=== PATIENT | female | born 2000 | race Hispanic/Latino ===

== ENCOUNTER 2020-01-23 16:33 | Outpatient (CLI) | payer MEDICAID ==
[2020-01-23 18:24] LABS: Bilirubin,Urine NEG (Negative); Blood,Urine NEG (Negative); Color,Urine Yellow (Yellow); Mucus,Urine 1+ /HPF; Protein,Urine <15 mg/dL mg/dL (Negative); RBC,Urine < 1.0 /HPF (0.0-6.0); Urobilinogen,Urine < 2.0 mg/dL (<2.0)
[2020-01-23 18:45] LABS: Hematocrit 33.9 % (30.3-42.9); Hemoglobin 11.2 gm/dl (10.1-14.3); Mean Corpuscular HGB Conc 33 % (30-34); Mean Corpuscular Volume 86 fl (79-97); Platelet Count 138 K/mm3 (140-440); Red Blood Count 3.97 M/mm3 (3.65-5.03); Red Cell Distribution Width 17.2 % (13.2-15.2)
[2020-01-23 19:08] LABS: Alanine Aminotransferase 9 units/L (7-56); Uric Acid 3.6 mg/dL (3.5-7.6)
[2020-01-24 13:33] VITALS: BP 141/72
== END 2020-01-23 19:24 | disposition home or self-care (01) ==
LOC: TRG 16:33 → APU 16:34 → TRG 19:24
PROVIDERS: ATTEND Obstetrics & Gynecology
DX: O13.3 Gestational [pregnancy-induced] hypertension without significant proteinuria, third trimester (principal); Z3A.39 39 weeks gestation of pregnancy
CPT/HCPCS: 36415; 81001; 82565; 83615; 84450; 84460; 84550; 85027

== ENCOUNTER 2020-02-08 20:27 | Inpatient (IN) | payer MEDICAID ==
[2020-02-08] MEDS ORDERED: MINERAL OIL 30 ML ORAL LIQD PO PRN (21:39)
[2020-02-08] MEDS ORDERED: TERBUTALINE 1 MG/1 ML INJ IVP PRN (21:39)
[2020-02-08] MEDS ORDERED: LIDOCAINE (2%) 20 MG/1 ML VIAL 20 ML MDV INFILTRATI ONE (21:39)
[2020-02-08] MEDS ORDERED: TERBUTALINE 1 MG/1 ML INJ SUB-Q PRN (21:39)
[2020-02-08] MEDS ORDERED: AMPICILLIN/NS 2 GM/100 ML 2 GM/100 ML BAG IV ONE (21:39)
[2020-02-08] MEDS ORDERED: ONDANSETRON 4 MG/2 ML INJ IV PRN (21:39)
[2020-02-08] MEDS ORDERED: ePHEDrine SULFATE 50 MG/1 ML INJ IV PRN (21:39)
[2020-02-08] MEDS ORDERED: BUTORPHANOL 2 MG/1 ML INJ IV PRN (21:39)
--- NOTE | 2020-02-08 21:47 | History and Physical Report ---
History of Present Illness Date of examination: 02/08/20 Date of admission: 02/08/20 20:27 Chief complaint: Presents for a scheduled postdates induction History of present illness: Late entry to care, course complicated by Anemia and a Abnormal 1hour GTT followed by a normal 3hour GTT. Past History Past Medical History: no pertinent history Past Surgical History: no surgical history Family/Genetic History: diabetes (Father), hypertension (Father) Social history: no significant social history, single - Obstetrical History Expected Date of Delivery: 01/30/20 Actual Gestation: 41 Week(s) 2 Day(s) : 1 Medications and Allergies Allergies Allergy/AdvReac Type Severity Reaction Status Date / Time pollen extracts Allergy Itching Verified 01/23/20 17:07 Review of Systems All systems: negative - Physical Exam Breasts: Positive: normal Cardiovascular: Regular rate Lungs: Positive: Clear to auscultation, Normal air movement Abdomen: Positive: normal appearance, soft, normal bowel sounds Genitourinary (Female): Positive: normal external genitalia, normal perenium Vagina: Positive: normal moisture Uterus: Positive: enlarged Anus/Rectum: Positive: normal perianal skin Extremities: Positive: normal - Obstetrical FHR: category 1 Uterine Contraction Monitor Mode: External Cervical Dilatation: 3 (VTX; Intact) Cervical Effacement Percentage: 70 station: -2 Uterine Contraction Pattern: Absent Results All other labs normal. Assessment and Plan A: IUP @ 41 2/7 Weeks Category I Tracing GBS Positive P: Admit to L&D per Routine Orders Pitocin Induction GBS Prophylaxis
[2020-02-08] MEDS ORDERED: OXYTOCIN 20 UNIT/1000ML DRIP 20 UNITS/1,000 ML BAG IV SCH (22:00)
[2020-02-08] MEDS ORDERED: OXYTOCIN DRIP 30 UNITS/500 ML BAG IV SCH (22:00)
[2020-02-08] MEDS: LACTATED RINGERS 1,000 ML IV SCH (22:24)
[2020-02-09 00:57] LABS: Hematocrit 32.7 % (30.3-42.9); Hemoglobin 10.9 gm/dl (10.1-14.3); Mean Corpuscular HGB Conc 33 % (30-34); Mean Corpuscular Volume 88 fl (79-97); Platelet Count 141 K/mm3 (140-440); Red Blood Count 3.74 M/mm3 (3.65-5.03)
[2020-02-09] MEDS: LACTATED RINGERS 1,000 ML IV SCH ×2 (03:53→06:13)
[2020-02-09] MEDS: AMPICILLIN/NS 1 GM/50 ML 1 GM/50 ML BAG IV SCH ×3 (03:54→12:41)
[2020-02-09] MEDS ORDERED: fentaNYL-BUPIV 2 MCG/ML-0.125% 200 MCG/100 ML BAG EPIDURAL ONE (06:07)
[2020-02-09] MEDS ORDERED: DEXMEDETOMIDINE 200 MCG/2 ML VIAL IV ONE (06:07)
[2020-02-09] MEDS ORDERED: NALOXONE 2 MG/2 ML INJ IV PRN (06:23)
[2020-02-09] MEDS ORDERED: ePHEDrine SULFATE 50 MG/1 ML INJ IV PRN (06:23)
--- NOTE | 2020-02-09 06:23 | Anesthesia Consultation ---
Anesthesia Consult and Med Hx Date of service: 02/09/20 - Airway Anesthetic Teeth Evaluation: Good ROM Head & Neck: Adequate Mental/Hyoid Distance: Adequate Mallampati Class: Class II Intubation Access Assessment: Probably Good - Pulmonary Exam CTA: Yes - Cardiac Exam Cardiac Exam: RRR - Pre-Operative Health Status ASA Pre-Surgery Classification: ASA2 Proposed Anesthetic Plan: Epidural - Pulmonary Hx Asthma: No COPD: No Hx Pneumonia: No - Cardiovascular System Hx Hypertension: No - Central Nervous System Hx Seizures: No Hx Psychiatric Problems: No - Endocrine Hx Renal Disease: No Hx End Stage Renal Disease: No Hx Hypothyroidism: No Hx Hyperthyroidism: No - Hematic Hx Anemia: No Hx Sickle Cell Disease: No - Other Systems Hx Alcohol Use: No
--- NOTE | 2020-02-09 06:25 | Progress Note ---
Labor Epidural - Labor Epidural Start Time: 06:12 Stop Time: 06:16 Performed by:: CHARLOTTE DIAZ Procedure: Patient is requesting epidural for labor pain. H&P, and labs reviewed. Procedure explained, questions answered, consent obtained. Patient in sitting position with blood pressure cuff and pulse ox on and working. Timeout performed immediately before start of procedure. Sterile betadine prep/drape. 3 mL 1% lidocaine skin wheal at L[3]-L[4]. 18-gauge Touhy epidural needle advanced to [id number] with saline at [7] cm. 27-gauge spinal needle advanced until clear, free-flowing CSF. Intrathecal dexmedetomidine [10] mcg administered and needle removed. Epidural catheter advanced to [12] cm, negative aspiration for blood and csf, negative test dose 3 ml 1.5% lidocaine with epinephrine. Sterile steri-strips and tegaderm applied, followed by tape reinforcement. Patient tolerated procedure well.
[2020-02-09] MEDS ORDERED: fentaNYL-BUPIV 2 MCG/ML-0.125% 200 MCG/100 ML BAG EPIDURAL SCH (07:00)
[2020-02-09] MEDS ORDERED: SODIUM CHLORIDE 0.9% 1000 ML 1,000 ML ONE (08:11)
[2020-02-09] MEDS ORDERED: SODIUM CHLORIDE 0.9% 1000 ML 1,000 ML VG SCH (08:15)
--- NOTE | 2020-02-09 08:15 | Progress Note ---
Assessment and Plan A: IUP @ 41 2/7 Weeks Category II Tracing Active Labor GBS Positive P: AROM Internals x 2 Continue GBS Prophylaxis Amnioinfusion Consulted Dr. Padilla about Category II Tracing Recommends Resting off Pitocin x 1 hour Fluid Bolus Subjective - Subjective Date of service: 02/09/20 Interval history: Late entry to care, course complicated by Anemia and a Abnormal 1hour GTT followed by a normal 3hour GTT. Patient reports: movement normal, other (Resting well under epidural anesthesia) Objective - Vital Signs Vital Signs: Vital Signs - 12hr 02/08/20 02/08/20 02/08/20 21:48 21:53 21:58 Temperature Pulse Rate 85 88 94 H Respiratory Rate Blood Pressure 127/72 Blood Pressure [Left] O2 Sat by Pulse 98 100 Oximetry 02/08/20 02/08/20 02/08/20 22:03 22:08 22:10 Temperature Pulse Rate 86 94 H 94 H Respiratory Rate Blood Pressure 121/59 Blood Pressure [Left] O2 Sat by Pulse 100 100 Oximetry 02/08/20 02/08/20 02/08/20 22:13 22:18 22:23 Temperature Pulse Rate 92 H 89 90 Respiratory Rate Blood Pressure Blood Pressure [Left] O2 Sat by Pulse 100 100 100 Oximetry 02/09/20 02/09/20 02/09/20 00:02 00:03 00:04 Temperature Pulse Rate 80 82 81 Respiratory 18 Rate Blood Pressure 129/62 Blood Pressure 129/62 [Left] O2 Sat by Pulse 98 98 Oximetry 02/09/20 02/09/20 02/09/20 00:06 04:00 04:06 Temperature 97.8 F Pulse Rate 25 L 66 70 Respiratory 18 Rate Blood Pressure Blood Pressure [Left] O2 Sat by Pulse 88 99 99 Oximetry 02/09/20 02/09/20 02/09/20 04:11 04:15 04:16 Temperature Pulse Rate 72 73 73 Respiratory Rate Blood Pressure 131/83 Blood Pressure [Left] O2 Sat by Pulse 99 99 Oximetry 02/09/20 02/09/20 02/09/20 04:21 04:26 04:30 Temperature Pulse Rate 79 81 68 Respiratory Rate Blood Pressure 125/78 Blood Pressure [Left] O2 Sat by Pulse 99 99 Oximetry 02/09/20 02/09/20 02/09/20 04:31 04:36 04:41 Temperature Pulse Rate 69 73 83 Respiratory Rate Blood Pressure Blood Pressure [Left] O2 Sat by Pulse 99 98 99 Oximetry 02/09/20 02/09/20 02/09/20 04:45 04:46 04:51 Temperature Pulse Rate 75 96 H 134 H Respiratory Rate Blood Pressure 137/80 Blood Pressure [Left] O2 Sat by Pulse 85 89 Oximetry 02/09/20 02/09/20 02/09/20 04:52 04:56 05:00 Temperature Pulse Rate 92 H 78 Respiratory Rate Blood Pressure 130/79 Blood Pressure [Left] O2 Sat by Pulse 92 99 Oximetry 02/09/20 02/09/20 02/09/20 05:01 05:06 05:11 Temperature Pulse Rate 69 73 77 Respiratory Rate Blood Pressure Blood Pressure [Left] O2 Sat by Pulse 100 99 98 Oximetry 02/09/20 02/09/20 02/09/20 05:15 05:16 05:21 Temperature Pulse Rate 77 77 89 Respiratory Rate Blood Pressure 137/83 Blood Pressure [Left] O2 Sat by Pulse 98 99 Oximetry 02/09/20 02/09/20 02/09/20 05:26 05:30 05:31 Temperature Pulse Rate 81 70 71 Respiratory Rate Blood Pressure 129/79 Blood Pressure [Left] O2 Sat by Pulse 99 100 Oximetry 02/09/20 02/09/20 02/09/20 05:36 05:41 05:46 Temperature Pulse Rate 80 77 85 Respiratory Rate Blood Pressure 148/85 Blood Pressure [Left] O2 Sat by Pulse 98 99 100 Oximetry 02/09/20 02/09/20 02/09/20 05:51 05:56 06:01 Temperature Pulse Rate 101 H 97 H 112 H Respiratory Rate Blood Pressure 132/90 Blood Pressure [Left] O2 Sat by Pulse 100 100 99 Oximetry 02/09/20 02/09/20 02/09/20 06:04 06:06 06:11 Temperature Pulse Rate 107 H 77 98 H Respiratory Rate Blood Pressure Blood Pressure [Left] O2 Sat by Pulse 89 100 100 Oximetry 02/09/20 02/09/20 02/09/20 06:14 06:16 06:18 Temperature Pulse Rate 100 H 102 H 93 H Respiratory Rate Blood Pressure 158/89 130/73 125/62 Blood Pressure [Left] O2 Sat by Pulse 100 Oximetry 02/09/20 02/09/20 02/09/20 06:20 06:21 06:22 Temperature Pulse Rate 88 100 H 86 Respiratory Rate Blood Pressure 123/58 111/56 Blood Pressure [Left] O2 Sat by Pulse 100 Oximetry 02/09/20 02/09/20 02/09/20 06:24 06:26 06:28 Temperature Pulse Rate 82 80 75 Respiratory Rate Blood Pressure 109/58 106/58 102/59 Blood Pressure [Left] O2 Sat by Pulse 99 Oximetry 02/09/20 02/09/20 02/09/20 06:30 06:31 06:32 Temperature Pulse Rate 75 69 67 Respiratory Rate Blood Pressure 113/63 108/57 Blood Pressure [Left] O2 Sat by Pulse 99 Oximetry 02/09/20 02/09/20 02/09/20 06:34 06:36 06:38 Temperature Pulse Rate 63 70 59 L Respiratory Rate Blood Pressure 105/59 101/55 126/72 Blood Pressure [Left] O2 Sat by Pulse 99 Oximetry 02/09/20 02/09/20 02/09/20 06:40 06:41 06:42 Temperature Pulse Rate 62 64 67 Respiratory Rate Blood Pressure 122/70 131/75 Blood Pressure [Left] O2 Sat by Pulse 99 Oximetry 02/09/20 02/09/20 02/09/20 06:44 06:46 06:48 Temperature Pulse Rate 66 69 78 Respiratory Rate Blood Pressure 125/68 130/70 120/67 Blood Pressure [Left] O2 Sat by Pulse 99 Oximetry 02/09/20 02/09/20 02/09/20 06:50 06:51 06:56 Temperature Pulse Rate 69 74 68 Respiratory Rate Blood Pressure 117/64 Blood Pressure [Left] O2 Sat by Pulse 98 98 Oximetry 02/09/20 02/09/20 02/09/20 07:01 07:05 07:06 Temperature Pulse Rate 70 76 76 Respiratory Rate Blood Pressure 110/57 Blood Pressure [Left] O2 Sat by Pulse 98 98 Oximetry 02/09/20 02/09/20 02/09/20 07:11 07:16 07:20 Temperature Pulse Rate 76 69 86 Respiratory Rate Blood Pressure 110/61 Blood Pressure [Left] O2 Sat by Pulse 98 98 Oximetry 02/09/20 02/09/20 02/09/20 07:21 07:26 07:31 Temperature Pulse Rate 79 65 80 Respiratory Rate Blood Pressure Blood Pressure [Left] O2 Sat by Pulse 98 97 96 Oximetry 02/09/20 02/09/20 02/09/20 07:35 07:36 07:41 Temperature Pulse Rate 70 87 97 H Respiratory Rate Blood Pressure 105/65 Blood Pressure [Left] O2 Sat by Pulse 98 99 Oximetry 02/09/20 02/09/20 02/09/20 07:46 07:50 07:51 Temperature Pulse Rate 114 H 76 82 Respiratory Rate Blood Pressure 143/60 Blood Pressure [Left] O2 Sat by Pulse 100 100 Oximetry 02/09/20 02/09/20 02/09/20 07:56 08:01 08:05 Temperature Pulse Rate 80 73 82 Respiratory Rate Blood Pressure 112/70 Blood Pressure [Left] O2 Sat by Pulse 100 99 Oximetry 02/09/20 08:06 Temperature Pulse Rate 78 Respiratory Rate Blood Pressure Blood Pressure [Left] O2 Sat by Pulse 100 Oximetry - Exam Breasts: normal Cardiovascular: Regular rate Lungs: Normal air movement Abdomen: Present: normal appearance, soft Uterus: Present: normal, firm, fundal height above umbilicus FHR: category 2 FHR comments: FHR: 130s, marked varability, -accels, +multiple varabile decels, +isolated late decels Cervical Dilatation: 5 (Copious amount of clear fluid upon AROM @0740) Cervical Effacement Percentage: 85 station: -2 Uterine Contraction Pattern: Irregular Uterine Tone Measurement Phase: Resting Uterine Contraction Intensity: Moderate Extremities: normal - Labs Labs: Abnormal Labs 02/09/20 00:15 RDW 18.0 H Laboratory Results - last 24 hr 02/09/20 02/09/20 00:15 00:15 WBC 7.6 RBC 3.74 Hgb 10.9 Hct 32.7 MCV 88 MCH 29 MCHC 33 RDW 18.0 H Plt Count 141 Blood Type A POSITIVE Antibody Screen Negative
--- NOTE | 2020-02-09 09:20 | Progress Note ---
Subjective - Subjective Date of service: 02/09/20 Principal diagnosis: IOL,postdates Interval history: patient aaox3,comfortable at bedside epidural adequate oxytocin at 2mu/min cervix 5cm/100%/-2 [place]:Q2-3 minutes FHT 130 baseline,moderate variability, +ve accelerations ( variables resolved) continue amnioinfusion maternal/ well being reassuring overall Ketan Padilla MD Patient reports: movement normal, other (Resting well under epidural anesthesia) Objective - Vital Signs Vital Signs: Vital Signs - 12hr 02/08/20 02/08/20 02/08/20 21:48 21:53 21:58 Temperature Pulse Rate 85 88 94 H Respiratory Rate Blood Pressure 127/72 Blood Pressure [Left] O2 Sat by Pulse 98 100 Oximetry 02/08/20 02/08/20 02/08/20 22:03 22:08 22:10 Temperature Pulse Rate 86 94 H 94 H Respiratory Rate Blood Pressure 121/59 Blood Pressure [Left] O2 Sat by Pulse 100 100 Oximetry 02/08/20 02/08/20 02/08/20 22:13 22:18 22:23 Temperature Pulse Rate 92 H 89 90 Respiratory Rate Blood Pressure Blood Pressure [Left] O2 Sat by Pulse 100 100 100 Oximetry 02/09/20 02/09/20 02/09/20 00:02 00:03 00:04 Temperature Pulse Rate 80 82 81 Respiratory 18 Rate Blood Pressure 129/62 Blood Pressure 129/62 [Left] O2 Sat by Pulse 98 98 Oximetry 02/09/20 02/09/20 02/09/20 00:06 04:00 04:06 Temperature 97.8 F Pulse Rate 25 L 66 70 Respiratory 18 Rate Blood Pressure Blood Pressure [Left] O2 Sat by Pulse 88 99 99 Oximetry 02/09/20 02/09/20 02/09/20 04:11 04:15 04:16 Temperature Pulse Rate 72 73 73 Respiratory Rate Blood Pressure 131/83 Blood Pressure [Left] O2 Sat by Pulse 99 99 Oximetry 02/09/20 02/09/20 02/09/20 04:21 04:26 04:30 Temperature Pulse Rate 79 81 68 Respiratory Rate Blood Pressure 125/78 Blood Pressure [Left] O2 Sat by Pulse 99 99 Oximetry 02/09/20 02/09/20 02/09/20 04:31 04:36 04:41 Temperature Pulse Rate 69 73 83 Respiratory Rate Blood Pressure Blood Pressure [Left] O2 Sat by Pulse 99 98 99 Oximetry 02/09/20 02/09/20 02/09/20 04:45 04:46 04:51 Temperature Pulse Rate 75 96 H 134 H Respiratory Rate Blood Pressure 137/80 Blood Pressure [Left] O2 Sat by Pulse 85 89 Oximetry 02/09/20 02/09/20 02/09/20 04:52 04:56 05:00 Temperature Pulse Rate 92 H 78 Respiratory Rate Blood Pressure 130/79 Blood Pressure [Left] O2 Sat by Pulse 92 99 Oximetry 02/09/20 02/09/20 02/09/20 05:01 05:06 05:11 Temperature Pulse Rate 69 73 77 Respiratory Rate Blood Pressure Blood Pressure [Left] O2 Sat by Pulse 100 99 98 Oximetry 02/09/20 02/09/20 02/09/20 05:15 05:16 05:21 Temperature Pulse Rate 77 77 89 Respiratory Rate Blood Pressure 137/83 Blood Pressure [Left] O2 Sat by Pulse 98 99 Oximetry 02/09/20 02/09/20 02/09/20 05:26 05:30 05:31 Temperature Pulse Rate 81 70 71 Respiratory Rate Blood Pressure 129/79 Blood Pressure [Left] O2 Sat by Pulse 99 100 Oximetry 02/09/20 02/09/20 02/09/20 05:36 05:41 05:46 Temperature Pulse Rate 80 77 85 Respiratory Rate Blood Pressure 148/85 Blood Pressure [Left] O2 Sat by Pulse 98 99 100 Oximetry 02/09/20 02/09/20 02/09/20 05:51 05:56 06:01 Temperature Pulse Rate 101 H 97 H 112 H Respiratory Rate Blood Pressure 132/90 Blood Pressure [Left] O2 Sat by Pulse 100 100 99 Oximetry 02/09/20 02/09/20 02/09/20 06:04 06:06 06:11 Temperature Pulse Rate 107 H 77 98 H Respiratory Rate Blood Pressure Blood Pressure [Left] O2 Sat by Pulse 89 100 100 Oximetry 02/09/20 02/09/20 02/09/20 06:14 06:16 06:18 Temperature Pulse Rate 100 H 102 H 93 H Respiratory Rate Blood Pressure 158/89 130/73 125/62 Blood Pressure [Left] O2 Sat by Pulse 100 Oximetry 05/28/20 05/28/20 05/28/20 06:20 06:21 06:22 Temperature Pulse Rate 88 100 H 86 Respiratory Rate Blood Pressure 123/58 111/56 Blood Pressure [Left] O2 Sat by Pulse 100 Oximetry 02/09/20 02/09/20 02/09/20 06:24 06:26 06:28 Temperature Pulse Rate 82 80 75 Respiratory Rate Blood Pressure 109/58 106/58 102/59 Blood Pressure [Left] O2 Sat by Pulse 99 Oximetry 02/09/20 02/09/20 02/09/20 06:30 06:31 06:32 Temperature Pulse Rate 75 69 67 Respiratory Rate Blood Pressure 113/63 108/57 Blood Pressure [Left] O2 Sat by Pulse 99 Oximetry 02/09/20 02/09/20 02/09/20 06:34 06:36 06:38 Temperature Pulse Rate 63 70 59 L Respiratory Rate Blood Pressure 105/59 101/55 126/72 Blood Pressure [Left] O2 Sat by Pulse 99 Oximetry 02/09/20 02/09/20 02/09/20 06:40 06:41 06:42 Temperature Pulse Rate 62 64 67 Respiratory Rate Blood Pressure 122/70 131/75 Blood Pressure [Left] O2 Sat by Pulse 99 Oximetry 02/09/20 02/09/20 02/09/20 06:44 06:46 06:48 Temperature Pulse Rate 66 69 78 Respiratory Rate Blood Pressure 125/68 130/70 120/67 Blood Pressure [Left] O2 Sat by Pulse 99 Oximetry 02/09/20 02/09/20 02/09/20 06:50 06:51 06:56 Temperature Pulse Rate 69 74 68 Respiratory Rate Blood Pressure 117/64 Blood Pressure [Left] O2 Sat by Pulse 98 98 Oximetry 02/09/20 02/09/20 02/09/20 07:01 07:05 07:06 Temperature Pulse Rate 70 76 76 Respiratory Rate Blood Pressure 110/57 Blood Pressure [Left] O2 Sat by Pulse 98 98 Oximetry 02/09/20 02/09/20 02/09/20 07:11 07:16 07:20 Temperature Pulse Rate 76 69 86 Respiratory Rate Blood Pressure 110/61 Blood Pressure [Left] O2 Sat by Pulse 98 98 Oximetry 02/09/20 02/09/20 02/09/20 07:21 07:26 07:31 Temperature Pulse Rate 79 65 80 Respiratory Rate Blood Pressure Blood Pressure [Left] O2 Sat by Pulse 98 97 96 Oximetry 02/09/20 02/09/20 02/09/20 07:35 07:36 07:41 Temperature Pulse Rate 70 87 97 H Respiratory Rate Blood Pressure 105/65 Blood Pressure [Left] O2 Sat by Pulse 98 99 Oximetry 02/09/20 02/09/20 02/09/20 07:46 07:50 07:51 Temperature Pulse Rate 114 H 76 82 Respiratory Rate Blood Pressure 143/60 Blood Pressure [Left] O2 Sat by Pulse 100 100 Oximetry 02/09/20 02/09/20 02/09/20 07:56 08:01 08:05 Temperature Pulse Rate 80 73 82 Respiratory Rate Blood Pressure 112/70 Blood Pressure [Left] O2 Sat by Pulse 100 99 Oximetry 02/09/20 02/09/20 02/09/20 08:06 08:11 08:16 Temperature Pulse Rate 78 79 83 Respiratory Rate Blood Pressure Blood Pressure [Left] O2 Sat by Pulse 100 98 99 Oximetry 02/09/20 02/09/20 02/09/20 08:20 08:21 08:26 Temperature Pulse Rate 86 82 69 Respiratory Rate Blood Pressure 117/67 Blood Pressure [Left] O2 Sat by Pulse 100 100 Oximetry 02/09/20 02/09/20 02/09/20 08:31 08:34 08:35 Temperature 97.8 F Pulse Rate 68 82 87 Respiratory 18 Rate Blood Pressure 123/79 Blood Pressure 123/79 [Left] O2 Sat by Pulse 99 Oximetry 02/09/20 02/09/20 02/09/20 08:36 08:41 08:46 Temperature Pulse Rate 79 80 76 Respiratory Rate Blood Pressure Blood Pressure [Left] O2 Sat by Pulse 99 100 100 Oximetry 02/09/20 02/09/20 02/09/20 08:51 08:56 09:01 Temperature Pulse Rate 85 88 68 Respiratory Rate Blood Pressure 122/73 Blood Pressure [Left] O2 Sat by Pulse 99 100 100 Oximetry 02/09/20 02/09/20 09:06 09:11 Temperature Pulse Rate 95 H 101 H Respiratory Rate Blood Pressure Blood Pressure [Left] O2 Sat by Pulse 99 99 Oximetry - Labs Labs: Abnormal Labs 02/09/20 00:15 RDW 18.0 H Laboratory Results - last 24 hr 02/09/20 02/09/20 00:15 00:15 WBC 7.6 RBC 3.74 Hgb 10.9 Hct 32.7 MCV 88 MCH 29 MCHC 33 RDW 18.0 H Plt Count 141 Blood Type A POSITIVE Antibody Screen Negative
[2020-02-09] MEDS ORDERED: SODIUM CHLORIDE 0.9% IRR 1,000 ML BOTTLE IR ONE (10:00)
[2020-02-09] MEDS ORDERED: HYDROcodone/ACETAMINOPHEN 5-325 MG TAB PO PRN (13:47)
[2020-02-09] MEDS ORDERED: LANOLIN/ZINC/DIMETHICONE (LANSINOH) 7 GM TP PRN (13:47)
[2020-02-09] MEDS ORDERED: WITCH HAZEL/ GLYCERIN PAD TP PRN (13:47)
[2020-02-09] MEDS ORDERED: diphenhydrAMINE 25 MG CAP PO PRN (13:47)
--- NOTE | 2020-02-09 13:58 | Procedure Note ---
OB Delivery Note - Delivery Date of Delivery: 02/09/20 (1320) Surgeon: MONA RAYMOND Estimated blood loss: other (250) - Vaginal Delivery presentation: vertex Delivery position: OA Intrapartum events: mult. late decelerations, mult.variable deceleratio Delivery induction: oxytocin Delivery augmentation: rupture of membranes, pitocin Delivery monitor: internal FHT, internal uterine Route of delivery: Delivery placenta: spontaneous Delivery cord: nuchal cord, 3 umbilical vessels Delivery laceration: 1st degree Delivery repair: vicryl Anesthesia: epidural Delivery comments: of a live 7'8 male over a 1st degree vaginal laceration under epidural anesthesia with Apgars of 8 and 9 at 1320 on 02/01/2020. Tight nuchal cord x 1, avulsed upon manual reduction. Cord immediately clamped and placed on warmer. Spontaneous delivery of placenta complete and intact with [place] side presenting at 1323. Fundus is firm and midline located 4 below the U. Lochia is scant. Vaginal laceration repaired with 2-0 Vicryl on a SH. Placenta discarded. GBS prophylaxis x 4. - Infant A at 1 minute: 8 at 5 minutes: 9 Gender: Male (7'8)
[2020-02-09] MEDS: FERROUS SULFATE 325 MG TAB PO SCH (21:56)
[2020-02-10] MEDS: IBUPROFEN 600 MG TAB PO SCH ×2 (00:02→06:25)
[2020-02-10 00:48] LABS: Hematocrit 29.5 % (30.3-42.9); Hemoglobin 9.6 gm/dl (10.1-14.3)
[2020-02-10] MEDS: FERROUS SULFATE 325 MG TAB PO SCH (09:30)
[2020-02-10] MEDS ORDERED: PRENATAL VIT27-FE FUMARATE-FOLIC ACID VIT TAB PO SCH (10:00)
--- NOTE | 2020-02-10 10:43 | Progress Note ---
Assessment and Plan - Patient Problems (1) Status post normal vaginal delivery Current Visit: Yes Status: Acute Plan to address problem: D/C home today if baby is ok for d/c F/U at office in 6 wks for routine PP visit or prn (2) Anemia Current Visit: Yes Status: Acute Qualifiers: Anemia type: iron deficiency Plan to address problem: Asymptomatic Continue daily oral iron supplementation as directed Increase iron rich foods into diet Subjective - Subjective Date of service: 02/10/20 Principal diagnosis: S/P ; PPD#1; Anemia Interval history: See admission H & P; OB delivery summary and PP progress notes Patient reports: appetite normal, voiding normally, pain well controlled, flatus, ambulating normally, other (Desires to go home today, advised that she may d/c today if baby is ok'd for d/c also), no bowel movement [place]: doing well, bottle feeding (and ) Objective - Vital Signs Latest vital signs: Vital Signs Temp Pulse Resp BP Pulse Ox 02/10/20 09:09 97.6 F 89 18 117/72 97 02/10/20 06:25 18 02/10/20 02:59 98.0 F 92 H 18 108/60 98 02/10/20 00:02 20 02/09/20 22:51 98.8 F 103 H 16 127/80 99 02/09/20 17:47 98.0 F 90 18 120/69 100 02/09/20 15:45 98.6 F 02/09/20 15:44 73 14 118/74 99 02/09/20 15:11 100 H 98 02/09/20 15:06 97 H 96 02/09/20 15:01 82 126/83 99 02/09/20 14:56 88 98 02/09/20 14:51 78 99 02/09/20 14:46 76 118/71 99 02/09/20 14:41 71 99 02/09/20 14:36 88 99 02/09/20 14:32 75 127/73 02/09/20 14:31 72 99 02/09/20 14:30 91 H 92 02/09/20 14:26 79 99 02/09/20 14:21 77 98 02/09/20 14:17 83 124/58 02/09/20 14:16 76 99 02/09/20 14:11 79 99 02/09/20 14:06 85 100 02/09/20 14:02 83 112/57 02/09/20 14:01 83 100 02/09/20 13:56 90 99 02/09/20 13:51 85 100 02/09/20 13:47 95 H 117/81 02/09/20 13:46 97 H 99 02/09/20 13:41 93 H 99 02/09/20 13:36 95 H 94 02/09/20 13:31 93 H 100 02/09/20 13:26 90 100 02/09/20 13:22 81 141/78 02/09/20 13:21 94 H 100 02/09/20 13:18 145 H 94 02/09/20 13:16 96 H 100 02/09/20 13:11 87 100 02/09/20 13:06 91 H 100 02/09/20 13:01 92 H 75 L 02/09/20 12:56 126 H 99 02/09/20 12:53 82 126/83 02/09/20 12:51 87 95 02/09/20 12:46 94 H 100 02/09/20 12:41 70 100 02/09/20 12:36 65 100 02/09/20 12:31 116 H 100 02/09/20 12:26 79 100 02/09/20 12:23 89 112/76 02/09/20 12:21 82 99 02/09/20 12:16 85 100 02/09/20 12:14 97 H 94 02/09/20 12:11 86 100 02/09/20 12:06 93 H 100 02/09/20 12:01 78 100 02/09/20 11:56 86 100 02/09/20 11:52 102 H 142/69 02/09/20 11:51 106 H 99 02/09/20 11:46 84 100 02/09/20 11:41 73 99 02/09/20 11:36 74 100 02/09/20 11:31 88 100 02/09/20 11:26 96 H 100 02/09/20 11:23 79 139/71 05 11:21 80 97 02/09/20 11:16 95 H 99 02/09/20 11:11 73 99 02/09/20 11:06 69 97 02/09/20 11:01 68 97 02/09/20 10:56 65 98 02/09/20 10:52 107 H 127/65 02/09/20 10:51 84 97 02/09/20 10:46 74 97 02/09/20 10:41 70 96 Intake and Output 02/09/20 02/10/20 02/10/20 23:59 07:59 15:59 Intake Total 1080 240 Output Total 1400 Balance -320 240 Intake: Oral 360 Intake, Free Water 720 240 Output: Urine 1400 Void 1400 Other: Total, Intake Amount 360 Total, Output Amount 800 # Voids Void 2 1 - Exam Breasts: Present: normal Cardiovascular: Present: Regular rate Lungs: Present: Normal air movement Abdomen: Present: soft Uterus: Present: firm, fundal height below umbilicus (U-2) Extremities: Present: edema (bilat feet) Deep Tendon Reflex Grade: Normal +2 Incision: Present: other (1st degree laceration, healing as expected) - Labs Labs: Abnormal lab results 02/10/20 Range/Units 00:28 Hgb 9.6 L (10.1-14.3) gm/dl Hct 29.5 L (30.3-42.9) %
--- NOTE | 2020-02-10 10:47 | Discharge Summary ---
Providers - Providers Date of Admission: 02/08/20 20:27 Date of discharge: 02/10/20 (1400) Attending physician: MILTON REYES Primary care physician: MILTON REYES Hospitalization Reason for admission: induction of labor (secondary to post-date ) Delivery: Episiotomy: none Laceration: 1st degree (healing as expected) Other procedures: none complications: none Discharge diagnosis: IUP at term delivered, other (anemia) [place] baby: male Hospital course: See admission H & P; OB delivery summary and PP progress notes Condition at discharge: Good Disposition: DC-01 TO HOME OR SELFCARE - Discharge Diagnoses (1) Status post normal vaginal delivery Status: Acute (2) Anemia Status: Acute Qualifiers: Anemia type: iron deficiency Plan - Discharge Medications Prescriptions: Ferrous Sulfate [Feosol 325 MG tab] 325 mg PO BID 30 Days #60 tablet - Provider Discharge Summary Activity: routine, no sex for 6 weeks, no heavy lifting 4 weeks, no strenuous exercise Diet: other (Iron rich diet) Instructions: routine Additional instructions: [] Smoking cessation referral if applicable(refer to patient education folder for contact #) [] Refer to [facility] Booklet Call your doctor immediately for: * Fever > 100.5 * Heavy vaginal bleeding ( >1 pad per hour) * Severe persistent headache * Shortness of breath * Reddened, hot, painful area to leg or breast * Drainage or odor from incision. * Keep laceration site clean and dry at all times and follow doctor's instructions regarding bathing/showering - Follow up plan Follow up: MILTON REYES MD [Primary Care Provider] - 6 Weeks
[2020-02-10 16:50] VITALS: BP 130/88
--- NOTE | 2020-02-10 19:46 | Post Anesthesia Evaluation ---
- Post Anesthesia Evaluation Patient Participated: Yes Airway Patent: Yes Stable Respiratory Function: Yes Nausea/Vomiting: No Temp > 96.8F: Yes Pain Manageable: Yes Adequeate Hydration: Yes Anesthesia Complications: No Block Receding Appropriately: Yes
== END 2020-02-10 17:00 | disposition home or self-care (01) | DRG 775 ==
LOC: APU 20:27 → LD 21:43 → OB 02-09 16:05
PROVIDERS: ADMIT Obstetrics & Gynecology; ATTEND Obstetrics & Gynecology
PROC: 10E0XZZ Delivery of Products of Conception, External Approach (ICD-10-PCS; principal; 2020-02-09)
PROC: 0HQ9XZZ Repair Perineum Skin, External Approach (ICD-10-PCS; 2020-02-09)
PROC: 3E033VJ Introduction of Other Hormone into Peripheral Vein, Percutaneous Approach (ICD-10-PCS; 2020-02-09)
PROC: 3E0R3BZ Introduction of Anesthetic Agent into Spinal Canal, Percutaneous Approach (ICD-10-PCS; 2020-02-09)
PROC: 00HU33Z Insertion of Infusion Device into Spinal Canal, Percutaneous Approach (ICD-10-PCS; 2020-02-09)
PROC: 10907ZC Drainage of Amniotic Fluid, Therapeutic from Products of Conception, Via Natural or Artificial Opening (ICD-10-PCS; 2020-02-09)
PROC: 3E0E7GC Introduction of Other Therapeutic Substance into Products of Conception, Via Natural or Artificial Opening (ICD-10-PCS; 2020-02-09)
DX: O76 Abnormality in fetal heart rate and rhythm complicating labor and delivery (principal); O69.81X0 Labor and delivery complicated by cord around neck, without compression, not applicable or unspecified; O48.0 Post-term pregnancy; O99.824 Streptococcus B carrier state complicating childbirth; O70.0 First degree perineal laceration during delivery; O99.02 Anemia complicating childbirth; D50.0 Iron deficiency anemia secondary to blood loss (chronic); Z3A.41 41 weeks gestation of pregnancy; Z37.0 Single live birth; Z82.49 Family history of ischemic heart disease and other diseases of the circulatory system; Z83.3 Family history of diabetes mellitus
CPT/HCPCS: 36415; 85014; 85018; 85027; 86850; 86900; 86901; G0378; J0290; J2590; J3490; J7030; J7120